=== PATIENT | female | born 1995 ===

== ENCOUNTER 2017-02-28 09:25 | Emergency (ER) | payer SELFPAY ==
[2017-02-28 09:26] VITALS: BMI 31.7
[2017-02-28 09:57] VITALS: TEMP 98.9; O2SAT 99
[2017-02-28] MEDS ORDERED: Naproxen 550 mg Tab PO STA (10:21)
--- NOTE | 2017-02-28 10:34 | ED PDOC ---
Arrival/HPI - General Chief Complaint: Headache Time Seen by Provider: 02/28/17 09:59 Historian: Patient - History of Present Illness Narrative History of Present Illness (Text): 02/28/17 16:46 22 yo F present with 3 day h/o nontender, nonpruritic area of alopecia to the R frontal scalp and 4 day h/o intermittent headache, described as throbbing sensation to the center of her forehead associated with nausea, photophobia and phonophobia, reports taking Tylenol with mild improvement of symptoms. Otherwise : (-) thunderclap headache, (-) worse headache of life, (-) rash, (-) vomiting, (-) fever, (-) trauma, (-) subjective neurologic symptoms. Patient reports having alopecia to the L frontal scalp 1 week ago, which is starting to grow back. Past Medical History - Provider Review Nursing Documentation Reviewed: Yes - Infectious Disease Hx of Infectious Diseases: None - Reproductive Menopause: No - Genitourinary/Gynecological Hx Genitourinary Disorders: No - Psychiatric Hx Substance Use: No - Anesthesia Hx Anesthesia: No Family/Social History - Physician Review Nursing Documentation Reviewed: Yes Family/Social History: No Known Family HX Smoking Status: Never Smoked Hx Alcohol Use: No Hx Substance Use: No Allergies/Home Meds Allergies/Adverse Reactions: Allergies peanut Allergy (Verified 02/28/17 09:58) ANAPHYLAXIS Review of Systems - Review of Systems Constitutional: Normal. absent: Fatigue, Weight Change, Fevers ENT: Normal. absent: Hearing Changes, Tinnitus Respiratory: Normal. absent: SOB, Cough Cardiovascular: Normal. absent: Chest Pain, Palpitations Skin: Normal, Other (alopecia). absent: Rash, Pruritis, Skin Lesions Neurological: Normal, Headache. absent: Dizziness, Focal Weakness Physical Exam - Physical Exam Narrative Physical Exam (Text): 02/28/17 16:58 GENERAL APPEARANCE: Patient is awake, alert, oriented x 3, in no acute distress. SKIN: Warm, dry; (-) cyanosis; (-) rash. (+) area of alopecia in the R frontal scalp. HEAD: (-) scalp swelling or tenderness, (-) temporal artery tenderness. EYES: (-) conjunctival pallor, (-) scleral icterus. ENMT: (-) sinus tenderness; mucous membranes moist. NECK: (-) tenderness, (-) stiffness, (-) meningismus, (-) lymphadenopathy. CHEST AND RESPIRATORY: (-) rales, (-) rhonchi, (-) wheezes; breath sounds equal bilaterally. HEART AND CARDIOVASCULAR: (-) irregularity; (-) murmur, (-) gallop. ABDOMEN AND GI: Soft; (-) tenderness. EXTREMITIES: (-) deformity. NEURO AND PSYCH: Mental status as above. 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 Strength and DTRs symmetric. Babinski normal bilaterally. Vital Signs Temp Pulse Resp BP Pulse Ox 02/28/17 11:00 89 16 140/98 H 99 02/28/17 09:56 98.9 F 90 18 144/108 H 99 Medical Decision Making ED Course and Treatment: 02/28/17 10:25 22 yo F present with alopecia and headache, likely migraine headache. Given reglan po and naprosyn po. Based on history and exam, plan will be for outpatient follow-up with the clinic and dermatology referral provided. Rx provided. Patient states she fully agrees with and understands discharge instructions. States that she agrees with the plan and disposition. Verbalized and repeated discharge instructions and plan. I have given the patient opportunity to ask any additional questions. Follow up with the clinic and dermatology referral in 1-2 days without fail. Advised to take medication as prescribed. Return to the emergency room at any time for any new or worsening symptoms. 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 Disposition/Present on Arrival - Present on Arrival Any Indicators Present on Arrival: No History of DVT/PE: No History of Uncontrolled Diabetes: No Urinary Catheter: No History of Decub. Ulcer: No History Surgical Site Infection Following: None - Disposition Have Diagnosis and Disposition been Completed?: Yes Diagnosis: Headache, Alopecia Disposition: HOME/ ROUTINE Disposition Time: 10:34 Patient Plan: Discharge Condition: GOOD Discharge Instructions (ExitCare): Chronic Alopecia (ED), Acute Headache (ED) Print Language: BULGARIAN Prescriptions: Naproxen 500 mg PO BID #30 tab Metoclopramide HCl [Reglan] 10 mg PO QID PRN #20 tablet PRN Reason: Headache Referrals: [facility] [Outside] - Follow up with primary [facility] at [facility] [place] [Outside] - Follow up with primary Dmitry Ferguson MD [Staff Provider] - Follow up with primary
[2017-02-28 11:12] VITALS: BP 140/98; PULSE 89; RESP 16
== END 2017-02-28 11:00 | disposition home or self-care (01) ==
LOC: ED 09:25
DX: R51 Headache (principal); L65.9 Nonscarring hair loss, unspecified

== ENCOUNTER 2017-05-08 08:49 | Emergency (ER) | payer MEDICAID, OTHER ==
[2017-05-08] MEDS ORDERED: Amoxicillin-Clav 875-125 mg Tab PO STA (09:11)
[2017-05-08 09:12] VITALS: BMI 39.4
[2017-05-08 09:19] VITALS: BP 125/93; PULSE 80; RESP 16; TEMP 98.4; O2SAT 99
--- NOTE | 2017-05-08 09:19 | ED PDOC ---
Arrival/HPI - General Time Seen by Provider: 05/08/17 09:10 Historian: Patient - History of Present Illness Narrative History of Present Illness (Text): 05/08/17 09:16 22yo morbidly obese female with no PMHx present with 2weeks history of frontal headache, nasal congestion, facial pain, nausea. She did not take any medication for her symptoms. Denies focal weakness, visual changes, abdominal pain, fever, chills, sick contact, travel, any other complaint. Past Medical History - Provider Review Nursing Documentation Reviewed: Yes - Infectious Disease Hx of Infectious Diseases: None - Genitourinary/Gynecological Hx Genitourinary Disorders: No - Psychiatric Hx Substance Use: No - Anesthesia Hx Anesthesia: No Family/Social History - Physician Review Nursing Documentation Reviewed: Yes Family/Social History: Unknown Family HX Smoking Status: Never Smoked Hx Alcohol Use: No Hx Substance Use: No Allergies/Home Meds Allergies/Adverse Reactions: Allergies peanut Allergy (Verified 05/08/17 09:15) ANAPHYLAXIS Review of Systems - Physician Review All systems were reviewed & negative as marked: Yes - Review of Systems Constitutional: Normal Eyes: Normal ENT: Sinus Congestion Respiratory: Normal Cardiovascular: Normal Gastrointestinal: Nausea. absent: Abdominal Pain, Constipation, Diarrhea, Vomiting, Hematemesis Genitourinary Female: Normal Musculoskeletal: Normal Skin: Normal Neurological: Headache. absent: Dizziness, Focal Weakness Endocrine: Normal Hemo/Lymphatic: Normal Psychiatric: Normal Physical Exam Vital Signs Reviewed: Yes Temperature: Afebrile Blood Pressure: Normal Pulse: Regular Respiratory Rate: Normal Appearance: Positive for: Well-Appearing, Non-Toxic, Comfortable Pain Distress: None Mental Status: Positive for: Alert and Oriented X 3 - Systems Exam Head: Present: Atraumatic, Normocephalic Pupils: Present: PERRL Extroacular Muscles: Present: EOMI Conjunctiva: Present: Normal Mouth: Present: Moist Mucous Membranes Nose (Internal): Present: Engorged (worse on the left nare), Other (Tenderness over the frontal and maxillary sinuses). No: Boggy, Clear Mucous, Rhinorrhea Neck: Present: Normal Range of Motion Respiratory/Chest: Present: Clear to Auscultation, Good Air Exchange. No: Respiratory Distress, Accessory Muscle Use Cardiovascular: Present: Regular Rate and Rhythm, Normal S1, S2. No: Murmurs Abdomen: Present: Normal Bowel Sounds. No: Tenderness, Distention, Peritoneal Signs, Rebound, Guarding, McBurney's Point Tender, Rovsing's Sign Present Back: Present: Normal Inspection Upper Extremity: Present: Normal Inspection. No: Cyanosis, Edema Lower Extremity: Present: Normal Inspection. No: Edema Neurological: Present: GCS=15, CN II-XII Intact, Speech Normal, Motor Func Grossly Intact, Normal Sensory Function, Normal Cerebellar Funct, Norm Deep Tendon Reflexes, Gait Normal, Memory Normal, Normal 2Pt Descrimination, Other ( No focal neuroloigical deficit) Skin: Present: Warm, Dry, Normal Color. No: Rashes Psychiatric: Present: Alert, Oriented x 3, Normal Insight, Normal Concentration Medical Decision Making - Medication Orders Current Medication Orders: Discontinued Medications Amoxicillin/Clavulanate Potassium (Augmentin 875 Mg-125 Mg Tab) 1 tab PO STAT STA PRN Reason: Protocol Stop: 05/08/17 09:12 Ibuprofen (Motrin Tab) 600 mg PO STAT STA Stop: 05/08/17 09:12 Prednisone (Prednisone Tab) 40 mg PO STAT STA Stop: 05/08/17 09:13 Disposition/Present on Arrival - Present on Arrival Any Indicators Present on Arrival: No History of DVT/PE: No History of Uncontrolled Diabetes: No Urinary Catheter: No History Surgical Site Infection Following: None - Disposition Have Diagnosis and Disposition been Completed?: Yes Diagnosis: Acute sinusitis, Headache Disposition: HOME/ ROUTINE Disposition Time: 09:30 Patient Plan: Discharge Condition: STABLE Discharge Instructions (ExitCare): Sinusitis (ED) Additional Instructions: Follow up with your Doctor Return to ED fir any new or worsening symptoms Prescriptions: Amoxicillin/Clavulanate [Augmentin 875 MG-125 MG] 1 tab PO BID #20 tab Ibuprofen [Motrin Tab] 600 mg PO Q6 #20 tab Mometasone Furoate [Nasonex] 17 gm NS DAILY #1 spray.pump Referrals: [facility] at [facility] [place] [Outside] - Follow up with primary
== END 2017-05-08 09:52 | disposition home or self-care (01) ==
LOC: ED 08:49
DX: R51 Headache (principal); J01.90 Acute sinusitis, unspecified

== ENCOUNTER 2018-12-30 01:16 | Emergency (ER) | payer MEDICAID ==
[2018-12-30 01:17] VITALS: BMI 39.4
== END 2018-12-30 02:10 | disposition left against medical advice (07) ==
LOC: ED 01:16
DX: Z02.89 Encounter for other administrative examinations (principal); R51 Headache